=== PATIENT | male | born 1935 | race Caucasian/White ===

== ENCOUNTER → 2018-02-24 | Outpatient (CLI) | payer MEDICARE, OTHER ==
[~2018-02-24] MED LIST: ASPI81TA86 PO; BIMA2.5D5 OP; CALC-18 PO; CHOL100058 PO; CHOL200018 PO; CHOL200074 PO; GLUC-103 PO; MAGN250T34 PO; Magic Mouthwash PO; NAPR220T86 PO; OMEG-24 PO; OXYGENHOME INH; PNEU0.5D3 IM; TRIA15CR40 TP; VIT-40 PO; VITA-175 PO; VITA-197 PO; ZINC50TA2 PO; ZINC50TA43 PO; [UNRECOGNIZED DRUG - CODE] PO
== END ==
LOC: LAB 09:57
PROVIDERS: ATTEND Urology
DX: Z00.00 Encounter for general adult medical examination without abnormal findings (principal)
CPT/HCPCS: 36415; 84154

== ENCOUNTER → 2018-04-27 | Outpatient (CLI) | payer MEDICARE, OTHER ==
[~2018-04-27] MED LIST changes: +CALC100T4 PO; +MAGN250T5 PO; +VITA1CAP46 PO
--- NOTE | 2018-05-05 11:42 | RADIOLOGY IMAGING REPORT ---
FACILITY: [facility] PATIENT NAME: Erick Kothari : 1935 MR: [id number] V: [id number] EXAM DATE: ORDERING PHYSICIAN: BEHZAD MARVIN TECHNOLOGIST: Location: [facility] Patient: Erick Kothari : 1935 Visit/Account:[id number] Date of Sevice: 04/27/2018 EXAMINATION: MRI Lumbar spine without intravenous contrast HISTORY: Prostate cancer. Lytic lesion in the L5 vertebral body. COMPARISON: CT abdomen and pelvis dated 04/14/2018. Lumbar spine MRI dated 05/03/2016. TECHNIQUE: Multi-planar, multi-sequence lumbar spine MRI was performed without intravenous contrast administration. FINDINGS: Alignment: 3 mm of retrolisthesis of L3 over L4. Vertebral marrow signal: No suspicious mass. The small lytic lesion in the L5 vertebral body is hyper intense on T1 and most likely an intraosseous hemangioma or focal fat. This is stable compared with . Discogenic fatty marrow changes at L2-L3. Mild discogenic bone marrow edema at a few levels. Distal thoracic cord: Negative. Conus: negative, terminates at L1 Cauda equina: Negative. Paravertebral soft tissues: Negative. Visualized abdominal and pelvic structures: Negative. Disc Spaces: Lower thoracic spine: T11-T12: Moderate to severe disc height loss and circumferential disc bulge and facet hypertrophy. No significant spinal canal or left neural foraminal stenosis. Mild right neural foraminal stenosis. Wo rsened compared with 2007. T12-L1: Moderate to severe disc height loss with circumferential disc bulge and facet hypertrophy. No significant spinal canal stenosis. Mild bilateral neural foraminal stenosis. Worsened compared with 2007. L1-2: Moderate disc height loss with circumferential disc bulge, facet hypertrophy, and ligamentum fl avum thickening. Mild spinal canal and bilateral neural foraminal stenosis. Worsened compared with 11 11. L2-3: Severe disc height loss with circumferential disc osteophyte complex and facet hypertrophy. Rig ht hemilaminectomy. Mild spinal canal and bilateral neural foraminal stenosis. Right hemilaminectomy and discectomy are new compared with 2007. Disc height loss is worsened. Spinal canal stenosis is dec reased. Neural foraminal stenosis is slightly worsened. L3-4: Moderate disc height loss with circumferential disc osteophyte complex, facet hypertrophy, and ligamentum flavum thickening. Moderately severe spinal canal stenosis. Mild to moderate bilateral mita ral foraminal stenosis, left worse than right. Worsened compared with 2007. L4-5: Mild disc height loss with circumferential disc bulge, facet hypertrophy, and ligamentum flavum thickening. Moderate spinal canal stenosis. Mild to moderate bilateral neural foraminal stenosis, le ft worse than right. Worsened compared with 2006. L5-S1: Moderate disc height loss with circumferential disc osteophyte complex and facet hypertrophy. Mild bilateral lateral recess stenosis. Moderately severe bilateral neural foraminal stenosis. Slight ly worsened disc height loss compared with 2007. Stenosis is unchanged. IMPRESSION: 1. No suspicious mass. The small lytic lesion in the L5 vertebral body is hyperintense on T1 and most likely an intraosseous hemangioma or focal fat. This is stable compared with the lumbar spine MRI da shakir 05/03/2006. 2. Multilevel degenerative disc disease and facet hypertrophy with 3 mm of retrolisthesis of L3 over L4. Report Dictated By: Sami Ballard MD at 04/27/2018 9:06 AM Report E-Signed By: Sami Ballard MD at 04/27/2018 9:22 AM WSN:[id number]
== END ==
LOC: MRI 01:29
PROVIDERS: ATTEND Surgery
DX: Z85.46 Personal history of malignant neoplasm of prostate (principal)
CPT/HCPCS: 72148

== ENCOUNTER 2018-05-09 00:52 | Day surgery (SDC) | payer MEDICARE, OTHER ==
[2018-04-27 09:56] LABS: PLATELET COUNT, AUTOMATED 238 K/uL (150-450)
[~2018-05-09] VITALS: Ht 182.9 cm; Wt 74.4 kg
[2018-05-09] MEDS ORDERED: fentaNYL CITR 250 MCG/5 ML AMP ONE (10:46)
[2018-05-09] MEDS ORDERED: LIDOCAINE 2% IV 100 MG/5ML SYR ONE (10:47)
[2018-05-09 11:23] VITALS: BP 136/67
[2018-05-09] MEDS ORDERED: FAMOTIDINE 20 MG TAB PO ONE (11:40)
[2018-05-09] MEDS ORDERED: MIDAZOLAM 2 MG/2 ML VIAL IVP PRN (11:40)
[2018-05-09] MEDS ORDERED: LIDOCAINE/SOD BICARB 8.4% SYR ID ONE (11:40)
[2018-05-09] MEDS ORDERED: NORMOSOL R SOLN(*) 1000 ML BAG 1,000 ML IV PRN (11:40)
[2018-05-09] MEDS ORDERED: BUPIVACAINE/EPI 0.5% 50ML VIAL INFIL ONE (12:12)
[2018-05-09] MEDS ORDERED: CLINDAMYCIN 600 MG/4 ML 600 MG in NS(*) 0.9% 100 ML BAG 100 ML IVPB ONE (12:15)
[2018-05-09] MEDS ORDERED: LEVOFLOXACIN/D5W 750 MG/150 ML 150 ML IVPB ONE (12:15)
[2018-05-09] MEDS ORDERED: CLINDAMYCIN(*) 600 MG/NS 50 ML 50 ML IVPB ONE (12:25)
[2018-05-09] MEDS ORDERED: DEXAMETHASONE SOD 4 MG/ML VIAL ONE (12:35)
[2018-05-09] MEDS ORDERED: KETOROLAC 30 MG/ML VIAL ONE (12:43)
[2018-05-09] MEDS ORDERED: ONDANSETRON 4 MG/2 ML VIAL ONE (12:43)
[2018-05-09] MEDS ORDERED: SUGAMMADEX SOD 200 MG/2 ML SDV ONE (12:51)
[2018-05-09] MEDS ORDERED: TRAM-420 PO (13:49)
--- NOTE | 2018-05-09 13:56 | Short(Outpt) Discharge Summary ---
Discharge Summary Reason for Hosp/Final Diag: (1) Right inguinal hernia Hospital Course & Plan: 82 yo m presented for right ing hernia repair. he tolerated the procedure well and there were no complications. he will be discharged home when criteria met. Departure Discharge to: Home Discharge Instructions Home Meds Active Scripts Tramadol Hcl (TRAMADOL HCL) 50 Mg Tablet, 50 MG PO Q4H PRN for PAIN, #20 TAB Prov:BEHZAD MARVIN 05/09/18 Triamcinolone Acetonide 0.1% Cr 15 Gm Tube (TRIAMCINOLONE ACETONIDE 0.1% CREAM) 15 Gm Cream..g., 1 ERYN TP BID PRN for rash/ itching, #1 TUBE 1 Refill Prov:OSORIO EVANS MD 03/08/17 Reported Medications Vitamin B Complex (VITAMIN B COMPLEX) 1 Each Capsule, 1 EACH PO BID, CAPSULE 05/01/18 Magnesium Oxide (MAGNESIUM OXIDE) 250 Mg Tablet, 250 MG PO BID 05/01/18 Calcium Lactate (CALCIUM LACTATE) 100 Mg Tablet, 100 MG PO BID 05/01/18 Cholecalciferol (Vitamin D3) (VITAMIN D) 2,000 Unit Tablet, 1 TAB PO QDAY, CAPSULE 03/03/16 Oxygen (OXYGEN) Inha, 2.5 L INH HS, L 02/18/15 Cholecalciferol (Vitamin D3) (VITAMIN D) 1,000 Unit Capsule, 1 CAP PO QDAY, CAPSULE 02/18/15 Diboll-3 Fatty Acids/Fish Oil (FISH OIL 1,200 MG SOFTGEL) 1 Each Capsule, 1 EACH PO BID, CAPSULE 11/19/13 Diet: Regular Activity: No Heavy Lifting Special Instructions: no lifting more than 15 lbs for 6 wks. scrotal support and stool softeners are helpful. ok to shower tomorrow. please call to make a 2 week follow up appt ([phone]). BEHZAD MARVIN May 09, 2018 13:56
--- NOTE | 2018-05-09 13:58 | Post Operative Progress Note ---
Post Operative Progress Note Date: May 09, 2018 Time: 13:57 Surgeon: dr[facility] [employer] Attendant: none Anesthesia: gen, local dr. manning Pre-Op Diagnosis: right ing hernia Post-Op Diagnosis: same Findings: indirect right ing hernia Procedure(s): open right ing hernia repair with mesh Specimen Removed:(May be N/A): lipoma, hernia sac Complications: none Fluids: iv crystalloid Estimated Blood Loss: minimal Date OP Note Dictated: May 09, 2018 Time OP Note Dictated: 13:58 BEHZAD MORA May 09, 2018 13:58
--- NOTE | 2018-05-09 14:12 | OPERATIVE REPORT 1 ---
EVENT DATE: May 09, 2018 SURGEON: Jose Salinas MD ANESTHESIOLOGIST: Syed Billings MD ANESTHESIA: General and local. PURCHASING INTERNSHIP: None. PREOPERATIVE DIAGNOSIS Right inguinal hernia. POSTOPERATIVE DIAGNOSIS Right inguinal hernia. PROCEDURE PERFORMED Open right inguinal hernia repair with mesh. FLUIDS IV Crystalloid. ESTIMATED BLOOD LOSS Minimal. SPECIMENS Cord lipoma and hernia sac. COMPLICATIONS None. INDICATIONS This is an 82-year-old male with a medium size right inguinal hernia that is bothersome to him. He would like it repaired. Risk and benefits of the procedure were explained and consent was signed. DESCRIPTION OF PROCEDURE The patient was taken to the operating room and placed in the supine position. General anesthesia was administered per anesthesia team. The patient was prepped and draped in the normal sterile fashion. An incision was made above the right pubic tubercle and extended laterally and slightly superiorly. Dissection was carried down through the subcutaneous tissue and Marquise's fascia with electrocautery. The external ring was identified. A small incision was made in the aponeurosis of the external oblique and this was extended through the external ring and up over the internal ring with Metzenbaum scissors, taking care not to damage the underlying structures. The ilioinguinal nerve was identified and was removed to help prevent postoperative pain. A Marshall drain was then placed around the cord structures. The internal oblique fibers were divided. A cord lipoma was identified and it was removed using electrocautery. The hernia sac was from the cord structures. This was opened. There were no contents. This was then ligated proximally with 3-0 Vicryl stitch. The distal portion was divided with electrocautery and the stump sunk back below the internal ring. A Bard Prolene mesh was cut to size and was secured to Adolfo's ligament with a 2-0 PDS stitch. A T-slit was cut in it to accommodate the cord structures and this was secured around the cord structures to the inguinal ligament. I could still pass my finger tip between the mesh and the cord structures. The mesh was secured in several other areas including more medially on the inguinal ligament as well as the conjoined tendon and superolateral to internal ring. It was made to lie flat underneath the aponeurosis of the external oblique. The aponeurosis was then reapproximated using a running 3-0 Vicryl stitch. Marquise's fascia was approximated using interrupted 3-0 Vicryl stitches and the skin was closed using a running 4-0 Monocryl subcuticular stitch. More local analgesia was injected. Appropriate dressings were applied. The patient tolerated the procedure well and there were no complications. CALEB
[2018-05-09] MEDS ORDERED: traMADol 50 MG TAB ONE (14:30)
[2018-05-09] MEDS ORDERED: traMADol 50 MG TAB PO ONE (14:40)
[2018-05-09 14:45] VITALS: BP 130/80
[2018-05-09 15:00] VITALS: BP 130/77
[2018-05-09 15:15] VITALS: BP 152/91
[2018-05-09 15:19] VITALS: BP 152/90
== END 2018-05-09 14:45 | disposition home or self-care (01) ==
LOC: OR 00:52
PROVIDERS: ATTEND Surgery
DX: K40.90 Unilateral inguinal hernia, without obstruction or gangrene, not specified as recurrent (principal)
CPT/HCPCS: 36415; 49505; 85025; 88302; A9270; C1781; J1100; J1885; J1956; J2001; J2405; J3010

== ENCOUNTER → 2018-08-17 | Outpatient (CLI) | payer MEDICARE, OTHER ==
[~2018-08-17] MED LIST changes: +CHOL500051 PO; +GLUC-125 PO; +OMEG-95 PO; +TRAM-420 PO; +TURM500C4 PO; +VITA-131 PO
[2018-08-17 17:59] LABS: PLATELET COUNT, AUTOMATED 267 K/uL (150-450)
== END ==
LOC: LAB 17:09
PROVIDERS: ATTEND Family Medicine
DX: R53.83 Other fatigue (principal); R41.3 Other amnesia; E55.9 Vitamin D deficiency, unspecified
CPT/HCPCS: 36415; 82040; 82247; 82306; 82310; 82374; 82435; 82565; 82607; 82947; 84075; 84132; 84155; 84295; 84443; 84450; 84460; 84520; 85025